=== PATIENT | female | born 1945 | race Caucasian/White ===

== ENCOUNTER 2017-09-04 07:09 | Day surgery (SDC) | payer MEDICARE ==
[~2017-09-04] VITALS: Ht 152.4 cm; Wt 42.0 kg
[2017-09-04] VITALS (10 sets, daily range): BP systolic 121–157; BP diastolic 56–72
[2017-09-04] MEDS ORDERED: normal saline 1000ml 1,000 ML IV SCH (07:35)
[2017-09-04 07:57] LABS: BASOPHILS % (AUTO) 0.1 % (0-1); EOSINOPHILS % (AUTO) 0.3 % (0-6); HEMATOCRIT 24.9 % (35.0-45.0); HEMOGLOBIN 8.1 g/dl (12.0-16.0); LYMPHOCYTES # (AUTO) 0.3 X10'3 (1.1-4.8); LYMPHOCYTES % (AUTO) 11.9 % (21-51); MEAN CORPUSCULAR HEMOGLOBIN 28.1 PG (27.0-31.0); MEAN CORPUSCULAR HGB CONC 32.7 % (33.0-36.5); MEAN CORPUSCULAR VOLUME 85.9 FL (78-98); MEAN PLATELET VOLUME 6.3 FL (7.4-10.4); MONOCYTES # (AUTO) 0.2 X10'3 (0-0.9); MONOCYTES % (AUTO) 7.6 % (2-12); NEUTROPHILS # (AUTO) 2.1 X10'3 (1.8-7.7); NEUTROPHILS % (AUTO) 80.1 % (42-75); PLATELET COUNT 190 X10'3 (140-440); RED CELL DISTRIBUTION WIDTH 23.1 % (11.5-14.5); WHITE BLOOD COUNT 2.6 X10'3 (4.5-11.0)
[2017-09-04] MEDS ORDERED: midazolam 2 mg/2 ml injection IV PRN (08:25)
[2017-09-04] MEDS ORDERED: glucagon, human recombinant 1mg kit IV ONE (08:25)
[2017-09-04] MEDS ORDERED: fentaNYL/PF 50MCG/1 ML 2ML syringe IV PRN (08:25)
[2017-09-04] MEDS ORDERED: cefazolin/dext.iso 2gm/50ml 50 ML IV ONE (08:25)
[2017-09-04] MEDS ORDERED: LIDOcaine 1%/PF (10mg/ml) 5ml vial SQ ONE (08:25)
[2017-09-04] MEDS ORDERED: ceFAZolin inj. 2,000 MG in dextrose 5%-water 100 ML IV ONE (08:33)
[2017-09-04] MEDS ORDERED: MULT-1085 PO (08:36)
[2017-09-04] MEDS ORDERED: OMEP20TA5 PO (08:36)
[2017-09-04] MEDS ORDERED: IPRA3AMP IH (08:36)
[2017-09-04] MEDS ORDERED: BUDE10.2 INH (08:36)
[2017-09-04] MEDS ORDERED: HYDR-3968 PO (08:36)
[2017-09-04] MEDS ORDERED: MEGE40TA27 PO (08:36)
[2017-09-04] MEDS ORDERED: ALBU8.5H8 INH (08:36)
[2017-09-04] MEDS ORDERED: POLY17PO10 PO (08:36)
[2017-09-04] MEDS ORDERED: MONT10TA21 PO (08:36)
[2017-09-04] MEDS ORDERED: TIOT4MIS5 (08:36)
[2017-09-04] MEDS ORDERED: SUCR1TAB34 PO (08:36)
[2017-09-04] MEDS ORDERED: LIDOcaine 1%/PF (10mg/ml) 5ml vial ONE (08:44)
[2017-09-04] MEDS ORDERED: glucagon, human recombinant 1mg kit ONE (08:44)
[2017-09-04] MEDS ORDERED: fentaNYL/PF 50MCG/1 ML 2ML syringe ONE (08:45)
[2017-09-04] MEDS ORDERED: iohexol 300 MG/1 ML 50ml polymer ONE (08:45)
[2017-09-04] MEDS ORDERED: midazolam 2 mg/2 ml injection ONE (08:45)
[2017-09-04 11:19] LABS: ANISOCYTOSIS 3+; PLATELET ESTIMATE NORMAL; TOTAL CELLS COUNTED 100
[2017-09-04 11:20] LABS: ELLIPTOCYTES FEW; POLYCHROMASIA FEW; ROULEAUX 1+; SCHISTOCYTES FEW
[2017-09-04 11:21] LABS: TEAR DROP CELLS FEW
== END 2017-09-04 12:20 | disposition home or self-care (01) ==
LOC: SSTAY O 07:09
PROVIDERS: ATTEND Radiology Diagnostic Radiology
DX: R13.10 Dysphagia, unspecified (principal); Z85.118 Personal history of other malignant neoplasm of bronchus and lung; Z85.01 Personal history of malignant neoplasm of esophagus; Z79.891 Long term (current) use of opiate analgesic; Z87.891 Personal history of nicotine dependence; Z98.51 Tubal ligation status; Z90.2 Acquired absence of lung [part of]; Z79.899 Other long term (current) drug therapy
CPT/HCPCS: 36415; 49440; 85025; 99152; 99153; A6449; C1769; J0690; J1610; J2001; J2250; J3010; J7030; J7060; Q9967; A4620